=== PATIENT | male | born 1985 | race Caucasian/White ===

== ENCOUNTER → 2024-09-01 12:51 | Outpatient (BNVA) | payer OTHER, SELFPAY | PROVIDERS: Visit Provider Registered Nurse | DX: S92.354A Nondisplaced fracture of fifth metatarsal bone, right foot, initial encounter for closed fracture (principal); X50.1XXA Overexertion from prolonged static or awkward postures, initial encounter | CPT/HCPCS: 99203 ==

== ENCOUNTER 2024-09-22 09:21 | Outpatient (AMB) | payer OTHER, SELFPAY ==
--- NOTE | 2024-09-22 09:39 | A.OFFVIS_ITS ---
Vital Signs 09/22/24 09:45 Height 5 ft 7 in Weight 165 lb BMI 25.8 Handedness Right Intake Visit Reasons: FC-RT 5th metatarsal base Fx WC DOI-08/31/24 Intake Note: Jad is a 39 year old male who presents today with a post op shoe and crutches for a evaluations of his right ankle pain, DOI 08/31/24. Patient was seen at the [facility] work connection were he was placed in a boot, crutches and to be non weight bearing. Patient states he was walking and he rolled his ankle and his full weight was on it. He mentions that his pain is more on the lateral aspect of the foot and ankle. Patient states that he feels a dull/numbness in his small toe. Allergies No Known Allergies Allergy (Verified 09/22/24 09:44) HPI HPI FC-RT 5th metatarsal base Fx DOI-08/31/24: Details: Mr. 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 He felt and heard an audible crack and immediately had pain along the lateral aspect of the foot going up to the ankle. Date of injury was 08/31/2024. He presented to an ED where x-rays were obtained and he was found to have a fracture at the base of the 5th metatarsal. He was given a postop walking shoe and crutches. He was seen at the work connection where referral was placed to our orthopedic office for further evaluation and treatment. Patient states that he has been extremely painful to put weight on. And continues to have pain along the lateral aspect of the foot in the lateral aspect of the ankle. 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 Tenderness to palpation over the peroneal tendons. Patient is able to demonstrate dorsiflexion, plantar flexion, pronation and supination with limitations due to pain. Sensation is intact. Pedal pulse intact. Office Procedures AMB Fracture Care Fracture Billing Code: Fracture Billing Code Assessment & Plan Assessment & Plan (1) Fracture of base of fifth metatarsal bone of right foot: Code(s): S92.351A - Displaced fracture of fifth metatarsal bone, right foot, initial encounter for closed fracture Category: Medical Plan Mr. 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 He felt and heard an audible crack and immediately had pain along the lateral aspect of the foot going up to the ankle. Date of injury was 08/31/2024. He presented to an ED where x-rays were obtained and he was found to have a fracture at the base of the 5th metatarsal. He was given a postop walking shoe and crutches. He was seen at the work connection where referral was placed to our orthopedic office for further evaluation and treatment. Patient states that he has been extremely painful to put weight on. And continues to have pain along the lateral aspect of the foot in the lateral aspect of the ankle. While in the office today, I have switch the patient out of the postop shoe and placed him into a short walking boot. He may begin to weightbear as tolerated. Additionally, I have placed an order for physical therapy to work on range of motion and modalities. I would like to see him back in 4 weeks with repeat x- rays, sooner if needed. X-rays of the right foot which were obtained while in the office today and were reviewed by me, Angie Sagastume PA-C, revealed fracture of the base of the 5th metatarsal. Orders: Orders XR foot RT min 3V Today M79.673 - Pain in unspecified foot PT Evaluation and Treatment Today S92.351A - Displaced fracture of fifth metatarsal bone, right foot, initial encounter for closed fracture Coding Level of Care Code New Pt Level 4 (42688) Diagnoses Fracture of base of fifth metatarsal bone of right foot S92.351A CPT Codes Fracture Care - Fracture Billing Code: Fracture Billing Code ([id number])
[2024-09-22 09:45] VITALS: BMI 25.8
--- OUTSIDE RECORDS SUMMARY | 2024-09-22 09:50 | XMS_ITS | Encounter Summary ---
Author Organization [facility] Address [address] [place] [address] Care Team Providers Care Embossing Press Operator Name Role Phone Andrews Miller MD Primary Care Provider [phone] Encounter Details Date Type Department Care Team (Late st Contact Info) Description 02/09/2020 Scanned Document [facility] [address] [place] [place] [address] Provider, MD Myrna [address] [place] [address] Social History Tobacco Use Types Packs/Day Years [...] on file documented as of this encounter Visit Diagnoses Not on filedocumented in this encounter Care Teams Embossing Press Operator Relationship Specialty Start Date End Date Andrews Miller MD [address] [place] [id number] PCP - General Internal Medicine 05/11/19 documented as of this encounter
--- OUTSIDE RECORDS SUMMARY | 2024-09-22 09:50 | XMS_ITS | Clinical Summary ---
Author Organization [facility] Address [address] [place] [address] Phone Care Team Providers Care Engineer Systems Name Role Phone Andrews Miller MD Primary Care Provider [phone] Allergies No known active allergies Medications albuterol HFA (PROAIR HFA ; PROVENTIL HFA ; VENTOLIN HFA) 90 mcg/actuation inhaler Inhale 2 puffs by mouth every 6 hours as needed. Active ipratropium-alb uteroL (DUONEB) 0.5-2.5 mg/3 mL nebulizer solution Take 3 mL by nebulization every 6 (six) hours. 360 mL 4 Active Active Problems No known active problems Medical History Medical History Date Comments Asthma DX:Asthma;COMMEN T:exercise induced Low back pain DX:Low back pain Kidney stone DX:Kidney stone Family History Medical History Relation Name Comments No Known Problems Father No Known Problems Mother Cancer Paternal Grandfather Colon c ancer. Clotting disorder Neg Hx Relation Name Status Comments Father Mother Alive Paternal Grandfather Social History Tobacco Use Types Packs/Day Years Used Date Smoking Tobacco: Never Smokeless Tobacco: Never Alcohol Use Standard Drinks/Week Comments No 0 (1 standard drink = 0.6 oz pur e alcohol) Sex and Gender Information Value Date Recorded Sex Assigned at Male 01/14/2024 3:08 PM EST Legal Sex Male 4:48 AM EST Gender Identity Male 01/14/2024 3:08 PM EST Sexual Orientation Straight 01/14/2024 3: 08 PM EST Obstetrics History Last Filed Vital Signs Vital Sign Reading Time Taken Comments Blood Pressure 128/80 01/14/2024 2:51 PM EST Pulse 85 01/14/2024 2:51 PM EST Temperature 36.7 C (98.1 F) 01/14/2024 2:51 PM EST Respiratory Rate 20 01/14/2024 2:51 PM EST Oxygen Saturation 96% 01/14/2024 5:09 PM EST Inhaled Oxygen Concentration - - Weight 77.1 kg (170 lb) 01/14/2024 2:51 PM EST Height 170.2 cm (5' 7 ) 01/14/2024 2:51 PM EST Body Mass Index 26.63 01/14/2024 2:51 PM EST Plan of Treatment Health Maintenance Due Date Last Done Comments DTaP,Tdap,and Td Vaccines (1 - Tdap) 2005 Hepatitis B Vaccines (1 of 3 - 19+ 3-dose series) 2005 Pneumococcal Vaccine: Pediat rics (0 to 5 Years) and At-Risk Patients (6 to 49 Years) (1 of 2 - PCV) 2005 Cholesterol Screening (Lipid Panel) 02/11/2022 Depression Screening 02/11/2022 HIV Screening 02/11/2022 Hepatitis C Screening 02/11/2022 Social Influencers of Health Screening 02/11/2022 COVID-19 Vaccine (2023-2 5 season) 2023 Influenza Vaccine (#1) 2024 HIB Vaccines Aged Out No longer eligi ble based on patient's age to complete this topic HPV Vaccines Aged Out No longer eligi ble based on patient's age to complete this topic Hepatitis A Vaccines Aged Out No long er eligible based on patient's age to complete this topic IPV Vaccines Aged Out No longer eligi ble based on patient's age to complete this topic MMR Vaccines Aged Out No longer eligi ble based on patient's age to complete this topic Meningococcal ACWY Vaccine Aged Out N o longer eligible based on patient's age to complete this topic Meningococcal B Vaccine Aged Out No l onger eligible based on patient's age to complete this topic RSV Immunization Patients Un melyssa 20 months Aged Out No longer eligible b ased on patient's age to complete this topic Varicella Vaccines Aged Out No longer eligible based on patient's age to complete this topic Care Teams Engineer Systems Relationship Specialty Start Date End Date Andrews Miller MD PCP - General Hospitalist Medicine 04/23/19
--- OUTSIDE RECORDS SUMMARY | 2024-09-22 09:50 | XMS_ITS | Clinical Summary ---
Author Organization [facility] Address [address] [place] [address] Care Team Providers Care House Mother Name Role Phone Andrews Miller MD Primary Care Provider [phone] Allergies No known active allergies Medications Medication Sig Dispensed Refills Start Date End Date Status albuterol 108 (90 Base) MCG/ACT inhaler Inhale 2 puffs into the lungs every 6 (six) hours as needed for wheezing. 0 Active Active Problems Problem Noted Date Diagnosed Date UTI (urinary tract infection) 11/02/2021 Febrile illness, acute 11/02/2021 Cellulitis of right lower extremity 09/12/2017 Leukocytosis 09/12/2017 Hypokalemia 09/12/2017 Family History Medical History Relation Name Comments No Sig Med Hx Father No Sig Med Hx Mother Cancer Paternal Grandfather Colon c ancer. Clotting disorder Neg Hx Relation Name Status Comments Father Mother Alive Paternal Grandfather Social History Tobacco Use Types Packs/Day Years Used Date Smoking Tobacco: Never Smokeless Tobacco: Never Alcohol Use Standard Drinks/Week Comments No 0 (1 standard drink = 0.6 oz pure alcohol) social, 3-4 shots and a beer every weekend Sex and Gender Information Value Date Recorded Sex Assigned at Male 02/16/2019 12:47 PM EST Gender Identity Male 02/16/2019 12:47 PM EST Sexual Orientation Not on file Job Start Date Occupation Industry Not on file Not on file Not on file Last Filed Vital Signs Vital Sign Reading Time Taken Comments Blood Pressure 105/63 11/03/2021 7:22 AM EDT Pulse 71 11/03/2021 7:22 AM EDT Temperature 36.2 C (97.1 F) 11/03/2021 7:22 AM EDT Respiratory Rate 16 11/03/2021 7:22 AM EDT Oxygen Saturation 97% 11/03/2021 7:22 AM EDT Inhaled Oxygen Concentration - - Weight 68 kg (150 lb) 05/14/2022 9:45 AM EST Height 169 cm (5' 6.54 ) 05/14/2022 9:45 AM EST Body Mass Index 23.82 05/14/2022 9:45 AM EST Plan of Treatment Health Maintenance Due Date Last Done Comments Hepatitis B Vaccines (1 of 3 - 3-dose series) 1986 Hepatitis C Screening 1986 COVID-19 Vaccine (#1) 03/06/1987 Depression Screening 1998 BMI Counseling 2004 Preventative Health Evaluation 2004 DTap / Tdap / Td (1 - Tdap) 2005 Influenza Vaccine (#1) 2024 Pneumococcal Vaccine Aged Out No long er eligible based on patient's age to complete this topic RSV Ped < 20 months Aged Out No longe r eligible based on patient's age to complete this topic Advance Directives For more information, please contact: [phone] Latest Code Status on File Code Status Date Activated Date Inactivated Comments Full Code 11/03/2021 12:11 AM 11/03/2021 7:07 PM This code status was ascertained in the following way: discussion with patient . Code Status History Code Status Date Activated Date Inactivated Comments Full Code 09/12/2017 1:17 PM 09/15/2017 12:17 AM This c ode status was ascertained in the following way: discussion with patient . Care Teams House Mother Relationship Specialty Start Date End Date Andrews Miller MD [address] [facility] [place] [address] PCP - General Hospitalist Medicine 04/23/19
--- OUTSIDE RECORDS SUMMARY | 2024-09-22 09:50 | XMS_ITS | Data Portability ---
Author Organization [place] [facility] [place] [place] Address [address] [place] [address] Care Team Providers Care Hatch Tender Name Role Phone SAVANNAH RAYMOND Primary Care Provider CARINE WYLIE Supervisor [employer] [phone] Assessment Encounter Date Assessment Date Assessment LastModified by Organization Details LastModified Time 11/29/2023 11/29/2023 [facility] PROGRESS NOTE Previous Visit (if applicable) 11/01/2023:LES The above findings were discussed in detail today with the patient. He is 11 days postop status post left ulnar nerve decompression with anterior transposition, doing well. I discussed with him the need for weaning out of the sling and working on range of motion of the elbow. He can start gentle scar massage over the incision. I would refrain from using any lotions or soaking for another week. He will go to physical therapy to work on range of motion and gradual strengthening and endurance, I will provide a PT prescription that states this. Weight restrictions are no lifting anything over 10 pounds for the next week and then can progress to less than 30 pounds for the next 3 weeks. He will progress to increase lifting at 6 weeks. At that point I would allow him to go back to work full duty depending on how his PT is going. I will provide a note that states he will be out of work at this point. He will return for follow-up in 4 weeks for repeat evaluation. All of his questions were answered, he is in agreement the plan. IMPRESSION/PLAN : Jad is doing fairly well today without any current significant complaints. He is doing much better than he was at his previous visit and has regained his range of motion however has not started strengthening yet. He will start strengthening with physical therapy and return in 3 weeks for repeat evaluation. We will anticipate discussing return to work at that time. Of note, patient did have evidence of a previous suture abscess at the proximal wound however it does appear that it already decompressed and he does not have any signs of infection. He will monitor this closely. We will hold off on any further antibiotics for now We reviewed my findings at length with the patient today. We discussed the nature and etiology of this problem along with current treatment options. We discussed the expected course and outcomes and what to expect. We also discussed risks and benefits. All of their questions were answered today, and there was exhibited understanding and comprehension of all that was discussed. CC :4 week f/u L elbow Interim History : The patient presents to [facility] today for repeat evaluation of his left elbow now 6 weeks out from surgery. He is doing fairly well and feels that his symptoms are improving. He still has some radiating discomfort and numbness associated. Of note, patient did have evidence of a previous suture abscess at the proximal wound however it does appear that it already decompressed and he does not have any signs of infection. He is still working with physical therapy and has not started strengthening yet. 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 REVIEW OF SYSTEMS : Refer to HPI. Patient currently denies any chest pain, shortness of breath, headache, abdominal pain, numbness, tingling, or other musculoskeletal injuries. Also denies any recent infections including viral illnesses, weight loss, night sweats, fevers, chills, rigors, and body aches. Focused Physical Examination: Alignment of the all major joints of the Left Elbow are satisfactory. Incision overall healing well. Evidence of previous likely suture abscess in the proximal wound that appears to be decompressed. No surrounding signs of infection. No active drainage or purulent collection. No obvious suture present. No significant signs of obvious deformity or pathology. Skin is intact. No signs of cutaneous injury. No signs of infection including erythema, induration, abscess formation or purulent drainage. Tenderness: Continued tenderness at the surgical site. Otherwise, no other significant focal tenderness throughout the remainder of the hand, elbow and forearm. Range of motion of the elbow 0 to 120 degrees. Near full supination and pronation as well. 4+ out of 5 intrinsic strength left hand. Overall neurovascularly intact with full sensations in the radial, ulnar and median distributions. No subjective numbness or tingling. Intact EPL/FPL/instrinsic s with good strength. Palpable radial pulse and brisk cap refill throughout. IMAGING/DIAGNOSTIC TESTING: See Discussion Notes Section Below WORKING DIAGNOSIS : Status post left ulnar nerve decompression Procedure : See Procedure Notes Section Below Patient was seen and evaluated by Tavon Aaron PA-C in indirect conjuction with Documenting Provider: Lotus Blackwood MD . He/She agrees with history, physical examination, tests/diagnostic imaging, and treatment plan. Tavon Aaron PA-C [facility] [email or web address] Not available 11/29/2023 10:45:31 12/20/2023 12/20/2023 The above findin gs were discussed in detail today with the patient. He is about 8-1/2 weeks status post left ulnar nerve decompression with anterior transposition, doing well. He will continue to work with physical therapy on range of motion and strengthening, they can increase his weightbearing and lifting as tolerated. He will continue with home exercise this. Did let him know it may take months for the tingling to resolve, he understands this and we will continue to monitor. I will send him back to work to light duty work, not lift anything heavier than 10 pounds, no pushing or pulling. A note was provided today. He will return to see me for follow-up in 4 weeks for repeat evaluation. All of his questions were answered, he is in agreement with the plan. [email or web address] Not available 12/23/2023 13:45:31 01/17/2024 01/17/2024 The above findin gs were discussed in detail to the patient. He is 3 months from left ulnar nerve decompression with anterior transposition, doing well. I did remind him that numbness and tingling may take up to a year to improve after the surgery if it does improve at all. I would expect his strength to continue to improve however he has not been doing any therapy, formally or at home to improve his strength. I did let him know that it is important that he continue with home exercises even though he is not going to physical therapy to improve strengthening. He should start doing this at home with light weights and will continue to increase weightbearing and strengthening as tolerated. 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 I did let him know that eventually we will send him back to full duty, he is healed enough to withstand this however he would like to do some strengthening at home in order to feel ready to do this. I reassured him that the clicking he is feeling is not the ulnar nerve subluxating back into the cubital tunnel, it still sits anterior to the epicondyle where it was placed during surgery. She is continue with scar massage over the incision to help with swelling. I will see him back for follow-up in 4 weeks for reevaluation. All of his questions were answered, he is in agreement plan. [email or web address] Not available 01/17/2024 11:44:10 02/26/2024 02/26/2024 The above findin gs were discussed in detail today with the patient. He is 4 months status post left ulnar nerve decompression with anterior transposition. He continues to have pain localized at the medial epicondyle, along the ulnar nerve, and numbness and tingling in the small finger. I did let him know that the numbness and tingling in the hand and small finger can take up to a year or longer to improve. He may not see improvement in his strength in the hand for more than a year. The plan of the surgery is to stop progression of the symptoms. This was again explained to him as I explained to him many times before. The nerve again has not been subluxating, it still rests anterior to the epicondyle. I do not think that he has another point of compression given his examination. He needs to continue with strengthening and endurance at home, he can lift weights or go back to work to continue to build up his strength and endurance. Again this can take 6 months or a year to improve after surgery like this. I welcomed him to get a second opinion if he is concerned about this. I will progress his light duty to lifting less than 30 pounds at this point. We did discuss that he needs to eventually go back to work full duty. I will provide a note that states this. I will see him back for follow-up in 4 weeks for repeat evaluation. All of his questions were answered, he is in agreement. [email or web address] Not available 02/26/2024 10:43:41 04/03/2024 04/03/2024 He is 5 months status post left ulnar nerve decompression with anterior transposition from a work-related injury. He continues to make improvement on strengthening. We again discussed the expected postoperative recovery, I did let him know that numbness and tingling in the ring and small finger may take up to a year to resolve if it ever does completely get better and strengthening may take this amount of time to improve as well. In terms of his surgical site, he is well-healed without any concerns on my end in terms of the position of the nerve. Again he has no restrictions, he should continue to work on strengthening and endurance. I will send him back to work limited duty and increase restrictions to lifting less than 50 pounds. At his next visit when he is 6 months postop, I will release all restrictions and he will go back to work full duty. We had a explicit conversation about this and he understands that in 4 weeks when he is 6 months postop he will be released to work full duty. If he does not find that he can perform these because he does not have the strength, he may have to find a different job and he is already starting to look into that at this point. All of his questions were answered, he is in agreement the plan. [email or web address] Not available 04/03/2024 12:43:49 Plan of Treatment Reminders Order Date Submit Date Provider Last Modified By Organization Details Last Modified Time Details Appointments None record ed. Lab None record ed. Referral None record ed. Procedures None record ed. Surgeries None record ed. Imaging None record ed. Medication Orders None record ed. Patient TargetsNo targets recorded. Patient InstructionsNo instructions recorded. Reason for Referral None Reported. Problems Name Problem SNOMED Code Status Onset Date Resolution Date Notes Provider Name and Address Organization Details Recorded Time Neck pain 57522838 Active 2022 DIMITRIOS MCDERMOTT PA-C [address], [place], [address] , [place] [facility] 3 17:21:15 Accident while engaged in work-relat ed activity Active 2022 Not Available [facility] 4 08:26:36 Ulnar neuropathy of left arm 6836435380237 07 Active 2022 Richard Perez MD [address], [place], [address] , [place] - [facility] 3 14:14:59 Notes:Some problems listed i n Document: #[id number] could not be added to this patient's chart. Please review this document and add these problems to the patient's chart manually as needed. Problem Notes None recorded. Procedures Surgical History Date Name Laterality Status Provider Name and Address Organization Details Recorded Time 10/21/2023 NEUROPLAST Y, ULNAR NERVE AT ELBOW (SURG) completed Brandi Stokes [place] [facility] 10/22/2023 09:10:17 Imaging Results None recorded. Procedure Notes None recorded. Medical Equipment None Reported. Allergies No known drug allergies Medications Name Sig Start Date Stop Date Status Note LastModified by Organization Details LastModified Time naproxen 375 mg tablet TAKE 1 TABLET BY MOUTH TWICE DAILY IF NEEDED FOR PAIN active Not Available Not Available No t Available prednisone 20 mg tablet TAKE 2 TABLETS (40 MG TOTAL) BY MOUTH DAILY. active Not Available Not Available No t Available methocarbam ol 750 mg tablet TAKE 1 TABLET BY MOUTH EVERY DAY 04/10 completed Not Available Not Available Not Available cephalexin 500 mg capsule TAKE 1 CAPSULE BY MOUTH FOUR TIMES A DAY FOR 10 DAYS 01/30 completed Not Available Not Available Not Available bromphenira mine-pseudo ephedrine-D M 2 mg-30 mg-10 mg/5 mL oral syrup TAKE 10 ML BY MOUTH 4 (FOUR) TIMES A DAY NEEDED FOR CONGESTIO N OR COUGH. active Not Available Not Available No t Available oxycodone 5 mg tablet TAKE 1 TABLET EVERY 4 TO 6 HOURS BY MOUTH 12/19 completed Not Available Not Available Not Available Vitals Date Recorded Body height Body mass index (BMI) Body weight Provider Name and Address Organization Details Last Updated DateTime 04/03/2024 167.64 cm 27.4 kg/m2 09814.7 g Mallika Shepardgermainanastacio [facility] 04/03/2024 09:58:12 Date Recorded Body height Provider Name an d Address Organization Details Last Updated DateTime 11/29/2023 167.64 cm [facility]ose [facility] 11/29/2023 10:32:28 Date Recorded Body height Provider Name an d Address Organization Details Last Updated DateTime 12/20/2023 167.64 cm Jarret López [facility] 12/20/2023 10:33:15 Social History None recorded. Functional Status None recorded. Mental Status None recorded. Family History Nothing Reported. Medical History Condition Response Coronary Artery Disease N Gout N Hyperthyroidism N MRSA N Blood Transfusion N Emphysema N Depression N COPD N Hypothyroidism N Pacemaker N Vascular Disease N Gastrointestinal Disease N Anxiety Disorder N Autoimmune disease N Arthritis N Cancer N Stroke N High Cholesterol N Neurologic Disorder N Liver Disease N Organ Transplant N Rheumatoid Arthritis N Arrhythmia N Fibromyalgia N Kidney Disease N Allergies/Hayfever N Adverse Reaction to Anesthesia N Thyroid Problems N Anemia N Brain Injury N Heart Attack ([place]) N Osteopenia N Diabetes N Bleeding Disorder N Seizures/Epilepsy N AIDS/HIV N Congestive Heart Failure (CHF) N Asthma Y Amputation N Reflux/GERD N Sleep Apnea N Hepatitis N Aneurysm N Heart Disease N Pulmonary Embolism N Hypertension N Osteoporosis N Past Encounters Encounter ID Performer Location Encounter Start Date Encounter Closed Date Diagnosis/Indication Diagnosis SNOMED-CT Code Diagnosis ICD10 Code Diagnosis Note [id number] MD ANH Betts [place] [id number] 06/18/2022 14:09:03 06/18/2022 14:29:25 Accident while engaged in work-related activity 01660523 Y99.0 Neck pain 57211511 M54.2 [id number] [place] [address] 9 07/16/2022 14:22:27 07/16/2022 15:09:34 Accident while engaged in work-related activity 48233212 Y99.0 Neck pain 18649989 M54.2 [id number] MD ANH Betts [place] [id number] 08/13/2022 13:56:49 08/13/2022 14:17:05 Ulnar neuropathy of left arm 7463808213 25849 G56.22 Neck pain 25596840 M54.2 [id number] MD ANH Falcon [place] [id number] 09/19/2022 13:58:44 09/19/2022 14:37:51 Pain of left elbow joint 2530867898 3055308 M25.522 Ulnar neur opathy of left arm 2411684784 07301 G56.22 Elbow [id number] MD ANH Falcon [place] [id number] 10/24/2022 13:02:02 10/24/2022 13:19:13 Ulnar neuropathy of left arm 7157422656 36470 G56.22 Elbow [id number] MD ANH Falcon [place] [id number] 11/21/2022 10:13:57 11/21/2022 10:46:45 Ulnar neuropathy of left arm 8696062509 79780 G56.22 Elbow [id number] MD ANH Falcon [place] [address] 01/30/2023 09:34:07 01/30/2023 10:25:55 Ulnar neuropathy of left arm 3285145904 72895 G56.22 Elbow [id number] MD NAH Falcon [place] [address] 9 03/06/2023 09:01:30 03/06/2023 09:19:24 Ulnar neuropathy of left arm 0194167581 79925 G56.22 Elbow [id number] MD ANH Falcon [place] [address] 9 04/10/2023 09:31:49 04/10/2023 09:51:36 Ulnar neuropathy of left arm 5563761975 78823 G56.22 Elbow [id number] MD ANH Falcon [place] [address] 9 06/26/2023 10:57:33 06/26/2023 11:44:30 Ulnar neuropathy of left arm 4504063637 86260 G56.22 Elbow [id number] MD ANH Falcon [place] [address] 9 07/03/2023 10:11:57 07/03/2023 10:25:40 Ulnar neuropathy of left arm 6944655824 80143 G56.22 Elbow [id number] MD ANH Falcon [place] [id number] 07/31/2023 14:57:20 07/31/2023 15:13:48 Ulnar neuropathy of left arm 8281172161 70039 G56.22 Elbow [id number] MD ANH Falcon [place] [id number] 08/28/2023 15:34:59 08/28/2023 15:55:28 Ulnar neuropathy of left arm 4682425894 56869 G56.22 Elbow [id number] Lotus Schindelar , MD [address] [address] 09/30/2023 09:16:01 09/30/2023 10:34:12 Ulnar neuropathy of left arm 8839150725 71672 G56.22 [id number] MD WALE [address] [address] 11/01/2023 13:19:54 11/01/2023 13:45:12 Ulnar neuropathy of left arm 2863000691 41847 G56.[id number] [address] 11/29/2023 10:23:31 11/29/2023 10:51:04 Ulnar neuropathy of left arm 5700889230 32709 G56.22 [id number] MD WALE [address] [address] 12/20/2023 10:27:29 12/20/2023 10:58:29 Ulnar neuropathy of left arm 0939785596 98351 G56.22 [id number] Lotus Blackwood MD [address] [address] 01/17/2024 10:06:53 01/17/2024 10:40:07 Ulnar neuropathy of left arm 9406064884 65527 G56.22 [id number] Lotus Blackwood MD [address] [address] 02/26/2024 10:06:19 02/26/2024 10:40:31 Ulnar neuropathy of left arm 3105998717 62562 G56.22 [id number] Lotus Blackwood MD [address] [address] 04/03/2024 09:57:22 04/03/2024 10:28:33 Ulnar neuropathy of left arm 3890752560 63986 G56.22 Health Concerns Section Related Observation LastModified by Organization Detai ls LastModified Time None Recorded Concern Status LastModified by Organization Details LastModified Time None Recorded Advance Directives Directive None Recorded Payers Insurance Date Sequence Insurance Name Policy Number Policy Robin Covered Member ID Robin Member ID Guarantor Name 09/13/2023 [facility] Alexx Aranda Jad Notes Date Note Type Note Provider Name and Address Organization Details Recorded Time 12/20/2023 text/html He presents for postop follow-up status post left ulnar nerve decompression with anterior subcutaneous transposition, date of surgery [address] 24, he is 8 and half weeks postop. He has been in physical therapy, working on range of motion and gentle strengthening. He notes improvement in his symptoms, he does feel like the numbness and tingling in the ring and small finger are improving. He notes increased strength in his hand. He has been working up to 5 pound weights with physical therapy and doing home exercise program. He is happy with his progress. This is a work-related injury and he has been out of work. Lotus Blackwood MD [address], [place], [address], [facility] - [facility] 12/23/2023 13:45:49 01/17/2024 text/html He follows up fo r postop follow-up visit status post left ulnar nerve decompression with anterior transposition, date of surgery 10/21/2023, if he is 3 months postop. This is a work-related injury. He went back to work light duty on her last visit, not lifting up any heavier than 10 pounds. 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 He stopped physical therapy in November as work comp stopped authorizing it. Since then does not sound like he has been doing any exercises at home or working on strengthening and endurance. He does say he is doing scar massage. He notes improvement in pain and range of motion though still does have pain localized at his incision and over the ulnar nerve. He notes a clicking sensation with full extension of the elbow. He still notes numbness and tingling into the ring and small finger and weakness in the hand. Lotus Blackwood MD [address], [place], [address], [facility] - [facility] 01/17/2024 11:44:53 02/26/2024 text/html He follows up fo r postop follow-up visit status post left ulnar nerve decompression with anterior transposition, date of surgery 10/21/2023, if he is 4 months postop. This is a work-related injury. He is working light duty, not lifting up any heavier than 20 pounds. He has been discharged from physical therapy, his last session was yesterday. They felt that he plateaued in terms of making progress. He was working on strengthening and endurance. He notes continued pain at the incision site and at his posterior triceps. He notes a subjective clicking at the elbow with full extension. He still has pain weakness and numbness and tingling in the ulnar hand and into the small finger. He notes that it is slowly improving. He does not feel he can go back to full duty at this time. Lotus Blackwood MD [address], [place], [address], [facility] - [facility] 02/26/2024 10:43:51 04/03/2024 text/html He follows up fo r postop follow-up visit status post left ulnar nerve decompression with anterior transposition, date of surgery 10/21/2023, he is 5 months postop. I released him to working and lifting less than 30 pounds last visit. He has been tolerating this well. He is going to the gym and lifting 30 pounds. He notes improvement in the numbness at the medial incision he continues to have numbness into his ring and small finger and pain in the same distribution. He describes pain with full elbow extension especially when he is working overhead. He tells me he is not sure he is going to be able to go back to full duty at work due to the nature of his work. Lotus Blackwood MD [address], [place], [address], [place] [facility] 04/03/2024 12:44:00
== END 2024-09-22 10:23 | disposition home or self-care (01) ==
LOC: HO.HOS 09:22
PROVIDERS: Visit Provider Physician Assistant
DX: S92.351A Displaced fracture of fifth metatarsal bone, right foot, initial encounter for closed fracture (principal)
CPT/HCPCS: 99203

== ENCOUNTER → 2024-09-22 09:24 | Outpatient (BNV) | payer OTHER, SELFPAY | PROVIDERS: Visit Provider Radiology Diagnostic Radiology | DX: S92.351A Displaced fracture of fifth metatarsal bone, right foot, initial encounter for closed fracture (principal) | CPT/HCPCS: 73630 ==

== ENCOUNTER 2024-09-22 10:38 | Outpatient (REF) | payer OTHER, SELFPAY ==
--- NOTE | ~2024-09-22 | XR_ITS ---
EXAMINATION: XR FOOT 3 OR MORE VIEWS RIGHT HISTORY: M79.673 - Pain in unspecified foot COMPARISON: There are no prior studies available for comparison. FINDINGS: Three views of the right foot are submitted. Osseous mineralization is normal. There is a mildly displaced intra-articular fracture of the base of the 5th metatarsal. No additional fracture is seen. The joint spaces are preserved. There is mild soft tissue swelling at the fracture site. XR/XR foot RT min 3V IMPRESSION: Mildly displaced intra-articular fracture of the base of the 5th metatarsal. Electronically signed by: Bubba Cota MD 09/22/2024 09:35 AM EDT
--- OUTSIDE RECORDS SUMMARY | 2024-09-23 11:17 | XMS_ITS | Clinical Summary ---
Author Organization [facility] Address [address] [place] [address] Care Team Providers Care Camp Housekeeper Name Role Phone Andrews Miller MD Primary Care Provider [phone] Allergies No known active allergies Medications Medication [...] Advance Directives For more information, please contact: [phone] Latest Code Status on File Code Status [...] way: discussion with patient . Care Teams Camp Housekeeper Relationship Specialty Start Date End Date Andrews Miller MD [address] [facility] [address] PCP - General Hospitalist Medicine 04/23/19
--- OUTSIDE RECORDS SUMMARY | 2024-09-23 11:17 | XMS_ITS | Encounter Summary ---
Author Organization [facility] Address [address] [place] [address] Care Team Providers Care Field Service Poultry Technician Name Role Phone Andrews Miller MD Primary Care Provider Encounter Details Date Type Department Care Team (Late st Contact Info) Description 02/09/2020 Scanned Document [facility] [address] [place] [address] Provider, MD Myrna [address] [place] [address] Social History Tobacco Use Types Packs/Day Years [...] on filedocumented in this encounter Care Teams Field Service Poultry Technician Relationship Specialty Start Date End Date Andrews Miller MD [address] [place] [address] PCP - General Internal Medicine 05/11/19 documented as of this encounter
--- OUTSIDE RECORDS SUMMARY | 2024-09-23 11:17 | XMS_ITS | Clinical Summary ---
Author Organization [facility] Address [address] [place] [address] Phone Care Team Providers Care Machine Striper Name Role Phone Andrews Miller MD Primary Care Provider [phone] Allergies No known active allergies Medications albuterol [...] age to complete this topic Care Teams Machine Striper Relationship Specialty Start Date End Date Andrews Miller MD PCP - General Hospitalist Medicine 04/23/19
--- OUTSIDE RECORDS SUMMARY | 2024-09-23 11:17 | XMS_ITS | Data Portability ---
Author Organization [place] [facility] Mendo[facility] [place] Address [address] [place] [address] Care Team Providers Care Hardware Installation Coordinator Name Role Phone SAVANNAH RAYMOND Primary Care Provider [phone] CARINE WYLIE Research Engineer [phone] Assessment Encounter Date Assessment Date Assessment LastModified by Organization Details LastModified Time 11/29/2023 11/29/2023 [facility] PROGRESS NOTE Previous Visit (if applicable) 11/01/2023:LES [...] : The patient presents to [facility] today for repeat evaluation of his left [...] treatment plan. Tavon Aaron PA-C [facility] [email or web address] Not available 11/29/2023 10:45:31 12/20/2023 12/20/2023 The [...] Address Organization Details Recorded Time Neck pain 14589385 Active 2022 DIMITRIOS MCDERMOTT PA-C [address], [place], [address] , [place] - [facility] 3 17:21:15 Accident while engaged in work-relat ed activity Active [address] Not [address] [facility] 4 08:26:36 Ulnar neuropathy of left arm 1857284875555 07 Active 2022 Richard Perez MD [address], [place], [address] , [place] - [facility] 3 14:14:59 Notes:Some problems listed i n Document: #[id number] could not be added to this patient's chart. Please review this document and add these problems to the patient's chart manually as needed. Problem Notes None recorded. Procedures Surgical History Date Name Laterality Status Provider Name and Address Organization Details Recorded Time 10/21/2023 NEUROPLAST Y, ULNAR NERVE AT ELBOW (SURG) completed Brandi Stokes [place] - [facility] 10/22/2023 09:10:17 Imaging Results None recorded. [...] Updated DateTime 04/03/2024 167.64 cm 27.4 kg/m2 29001.7 g Mallika Shepardgermainanastacio [facility] 04/03/2024 09:58:12 Date Recorded Body height Provider Name an d Address Organization Details Last Updated DateTime 11/29/2023 167.64 cm Mariajose Cabrales [facility] 11/29/2023 10:32:28 Date Recorded Body height Provider Name an d Address Organization Details Last Updated DateTime 12/20/2023 167.64 cm Jarret López [facility] 12/20/2023 10:33:15 Social History None recorded. Functional Status None recorded. Mental Status None recorded. Family History Nothing Reported. Medical History Condition Response Coronary Artery Disease N Gout N Hyperthyroidism N MRSA N Blood Transfusion N Emphysema N Hypothyroidism N Depression N COPD N Pacemaker N Vascular Disease N Gastrointestinal Disease N Anxiety Disorder N Autoimmune disease N Arthritis N Cancer N Stroke N High Cholesterol N Neurologic Disorder N Liver Disease N Organ Transplant N Rheumatoid Arthritis N Arrhythmia N Fibromyalgia N Kidney Disease N Allergies/Hayfever N Adverse Reaction to Anesthesia N Thyroid Problems N Anemia N Brain Injury N Heart Attack ([place]) N Osteopenia N Diabetes N Bleeding Disorder [...] Code Diagnosis Note 4577 MD ANH Betts [place] [id number] 9 06/18/2022 14:09:03 06/18/2022 14:29:25 Accident while engaged in work-related activity 00721481 Y99.0 Neck pain 68390289 M54.2 [address] [place] [place] [address] 9 07/16/2022 14:22:27 07/16/2022 15:09:34 Accident while engaged in work-related activity 53420731 Y99.0 Neck pain 10006903 M54.2 59501 MD ANH Betts [place] [id number] 9 08/13/2022 13:56:49 08/13/2022 14:17:05 Ulnar neuropathy of left arm 5665622921 12170 G56.22 Neck pain 02104812 M54.2 35225 MD ANH Falcon [place] [id number] 9 09/19/2022 13:58:44 09/19/2022 14:37:51 Pain of left elbow joint 2543091965 8918454 M25.522 Ulnar neur opathy of left arm 6799379799 90858 G56.22 Elbow 64483 MD ANH Falcon [place] [address]672-[address] 9 10/24/2022 13:02:02 10/24/2022 13:19:13 Ulnar neuropathy of left arm 3444090192 59582 G56.22 Elbow 34274 MD ANH Falcon [place] [id number] 9 11/21/2022 10:13:57 11/21/2022 10:46:45 Ulnar neuropathy of left arm 4617096460 01866 G56.22 Elbow 30241 MD ANH Falcon [place] [address] 9 01/30/2023 09:34:07 01/30/2023 10:25:55 Ulnar neuropathy of left arm 1727530358 91330 G56.22 Elbow 62474 MD ANH Falcon [place] [address] 9 03/06/2023 09:01:30 03/06/2023 09:19:24 Ulnar neuropathy of left arm 1642700531 34579 G56.22 Elbow 62314 MD ANH Falcon [place] [address] 9 04/10/2023 09:31:49 04/10/2023 09:51:36 Ulnar neuropathy of left arm 3903883029 21410 G56.22 Elbow 25985 MD ANH Falcon [place] [address] 9 06/26/2023 10:57:33 06/26/2023 11:44:30 Ulnar neuropathy of left arm 2586822310 48365 G56.22 Elbow 78976 MD ANH Falcon [place] [address] 9 07/03/2023 10:11:57 07/03/2023 10:25:40 Ulnar neuropathy of left arm 5950516367 90115 G56.22 Elbow 21256 MD ANH Falcon [place] [phone] 9 07/31/2023 14:57:20 07/31/2023 15:13:48 Ulnar neuropathy of left arm 1749530123 03073 G56.22 Elbow 66305 MD ANH Falcon [place] [phone] 9 08/28/2023 15:34:59 08/28/2023 15:55:28 Ulnar neuropathy of left arm 6547209598 99245 G56.22 Elbow [address]2585 Lotus Schindelar , MD [address] [address] 09/30/2023 09:16:01 09/30/2023 10:34:12 Ulnar neuropathy of left arm 5569420249 52231 G56.22 28044 MD WALE [address] [address] 11/01/2023 13:19:54 11/01/2023 13:45:12 Ulnar neuropathy of left arm 0287591146 93062 G56.[address] [address] 11/29/2023 10:23:31 11/29/2023 10:51:04 Ulnar neuropathy of left arm 4398707505 12428 G56.22 13898 MD WALE [address] [address] 12/20/2023 10:27:29 12/20/2023 10:58:29 Ulnar neuropathy of left arm 6023747247 84221 G56.22 66757 Lotus Blackwood MD [address] [address] 01/17/2024 10:06:53 01/17/2024 10:40:07 Ulnar neuropathy of left arm 5590007024 08995 G56.22 68383 Lotus Blackwood MD [address] [address] 02/26/2024 10:06:19 02/26/2024 10:40:31 Ulnar neuropathy of left arm 2428457104 55912 G56.22 242177 Lotus Blackwood MD [address] [address] 04/03/2024 09:57:22 04/03/2024 10:28:33 Ulnar neuropathy of left arm 3086619489 48322 G56.22 Health Concerns Section Related Observation LastModified by Organization Detai ls LastModified Time None Recorded Concern Status LastModified by Organization Details LastModified Time None Recorded Advance Directives Directive None Recorded Payers Insurance Date Sequence Insurance Name Policy Number Policy Robin Covered Member ID Robin Member ID Guarantor Name 09/13/2023 [facility] Alexx Aranda Jad Notes Date Note [...] Lotus Blackwood MD [address], [place], [address], [facility] - [facility] 12/23/2023 13:45:49 01/17/2024 text/html He follows [...] Lotus Blackwood MD [address], [place], [address], [facility] - [facility] 01/17/2024 11:44:53 02/26/2024 text/html He follows [...] Lotus Blackwood MD [address], [place], [address], [facility] - [facility] 02/26/2024 10:43:51 04/03/2024 text/html He follows [...] Lotus Blackwood MD [address], [place], [address], [place] [facility] 04/03/2024 12:44:00
--- OUTSIDE RECORDS SUMMARY | 2024-09-23 11:18 | XMS_ITS ---
Author Name [facility] Organization Unknown History of Medication Use Medication Directions Dispensed Refills Start Date End Date Stat us brompheniramine-ps eudoephedrine-DM (BROMFED DM) 30-2-10 MG/5ML syrup Take 10 mL by mouth 4 (four) times a day as needed for congestion or cough. 04/22/2024 active predniSONE (DELTASONE) 20 MG tablet Take 2 tablets (40 mg total) by mouth daily. 04/22/2024 active ipratropium-albute roL (DUONEB) 0.5-2.5 mg/3 mL nebulizer solution Take 3 mL by nebulization every 6 (six) hours. 01/14/2024 02/14/2024 active sulfamethoxazole-t rimethoprim (BACTRIM DS,SEPTRA DS) 800-160 MG per tablet Take 1 tablet by mouth 2 (two) times a day. 04/23/2019 active ibuprofen (MOTRIN) 800 mg tablet Take 800 mg by mouth 3 (three) times a day. 02/14/2019 active albuterol (PROVENTIL HFA; VENTOLIN HFA) 108 (90 Base) MCG/ACT inhaler Inhale 2 puffs 4 times daily (every 6 hours) as needed. 02/23/2013 active naproxen 375 mg tablet TAKE 1 TABLET BY MOUTH TWICE DAILY IF NEEDED FOR PAIN active Problems Problem Status Onset Date Problem Type Date of Resolution Source Thoracic sprain active 2019-05-19 ProblemAct [facility] Myalgia active 2019-05-19 ProblemAct [facility] Chronic midline thoracic back pain active 2020-02-16 ProblemAct [facility] Mild persistent asthmatic bronchitis with acute exacerbation active EncounterDiagnosisAct [facility] Degeneration of thoracic disc without myelopathy active 2019-05-19 ProblemAct [facility] Viral URI with cough active EncounterDiagnosisAct [facility] Accident while engaged in work-related activity active 2022-07-17 ProblemAct [facility] Ulnar neuropathy of left arm active 2022-08-13 ProblemAct [facility] Neck pain active 2022-07-[address] [facility] [address] Moderate asthma with exacerbation, unspecified whether persistent active EncounterDiagnosisAct [facility] Pneumonia of left lower lobe due to infectious organism active EncounterDiagnosisAct [facility] Encounters Encounter Type Encounter Reason Primary Diagnosis Location Date Ambulatory [facility] 08/25/2024 Ambulatory [facility] 07/21/2024 Ambulatory [facility] 06/16/2024 Ambulatory [facility] 04/22/2024 Ambulatory Sinus Problem Sinus Problem [facility] 04/22/2024 Emergency Flu-like symptoms diff breathing chest pain Pneumonia, unspecified organism [facility] 01/14/2024 Ambulatory [facility] 11/28/2023 Ambulatory [facility] 11/07/2023 Ambulatory ROUTINE Lesion of ulnar nerve, left upper limb [facility] 10/21/2023 Ambulatory [facility] 10/03/2023 Ambulatory [facility] 09/30/2023 Ambulatory [facility] 08/27/2023 Ambulatory [facility] 06/26/2023 Ambulatory [facility] 05/29/2023 Ambulatory [facility] 04/01/2023 Ambulatory [facility] 01/16/2023 Ambulatory [facility] 11/14/2022 Ambulatory [facility] 10/08/2022 Ambulatory [facility] 09/19/2022 Ambulatory [facility] 08/28/2022 Ambulatory [facility] 08/15/2022 Ambulatory [facility] 07/17/2022 Ambulatory [facility] 06/18/2022 Ambulatory PAIN PAIN [facility] 04/19/2022 Care Team Organization Name Specialty Phone Email Start Date End Nadir Zuniga HI [employer] [facility] 07/08/2024 [facility] 01/16/2024 [facility] Primary Care 01/14/2024 [facility] 2023 [facility] 2023 [facility] Primary Care 05/29/2023 [facility] Primary Care 04/26/2023 [facility] provided No Primary Care 04/19/2022 10/28/2023 [facility] No provided Primary Care 04/19/2022 04/19/2022 [facility] Primary Care 03/06/2022 03/06/2022 [facility] Primary Care 02/26/2022 10/28/2023 [facility] Unattributed Primary Care 01/19/2022 024
== END 2024-09-22 10:39 | disposition home or self-care (01) ==
LOC: HO.HOSX 10:38
PROVIDERS: Visit Provider Physician Assistant
DX: M79.671 Pain in right foot (principal); S92.351A Displaced fracture of fifth metatarsal bone, right foot, initial encounter for closed fracture; X50.9XXA Other and unspecified overexertion or strenuous movements or postures, initial encounter; Y93.01 Activity, walking, marching and hiking
CPT/HCPCS: 73630; 99202

== ENCOUNTER 2024-10-23 10:40 | Outpatient (REF) | payer OTHER, SELFPAY ==
--- NOTE | ~2024-10-23 | XR_ITS ---
CLINICAL HISTORY: M79.673 - Pain in unspecified foot 3 view right foot Comparison: DX/SR - XR FOOT 3 OR MORE VIEWS RIGHT - 09/22/24 09:24 EDT Findings: Slight Blurring of the fracture margins of the base of the 5th metatarsal fracture without bridging callus formation. The fracture line remains evident. Findings are consistent with early evidence of healing. There is adjacent soft tissue swelling which persists. No significant arthritic change or erosions. No ankle effusion. No radiopaque foreign body. IMPRESSION: Early evidence of healing of the 5th metatarsal base fracture. This document has been electronically signed by: Hansel Rosario DO on 10/23/2024 13:48:11
--- OUTSIDE RECORDS SUMMARY | 2024-10-24 10:42 | XMS_ITS | Clinical Summary ---
Author Organization [facility] Address [address] [place] [address] Phone Care Team Providers Care Principal Clerk Typist Name Role Phone Andrews Miller MD Primary Care Provider [phone] Allergies No known active allergies Medications albuterol [...] age to complete this topic Care Teams Principal Clerk Typist Relationship Specialty Start Date End Date Andrews Miller MD PCP - General Hospitalist Medicine 04/23/19
--- OUTSIDE RECORDS SUMMARY | 2024-10-24 10:42 | XMS_ITS | Encounter Summary ---
Author Organization [facility] Address [address] [place] [address] Care Team Providers Care Platinumsmith Name Role Phone Andrews Miller MD Primary Care Provider [phone] Encounter Details Date Type Department Care Team (Late st Contact Info) Description 02/09/2020 Scanned Document [facility] [address] [place] [address] Provider, MD Myrna [address] [place] [address] Social History Tobacco Use Types Packs/Day Years [...] on filedocumented in this encounter Care Teams Platinumsmith Relationship Specialty Start Date End Date Andrews Miller MD [address] [place] [address] PCP - General Internal Medicine 05/11/19 documented as of this encounter
--- OUTSIDE RECORDS SUMMARY | 2024-10-24 10:42 | XMS_ITS | Clinical Summary ---
Author Organization [facility] Address [address] [place] [address] Care Team Providers Care Balance Wheel Arm Burnisher Name Role Phone Andrews Miller MD Primary Care Provider [phone] Allergies No known active allergies Medications Medication [...] Advance Directives For more information, please contact: [phone] Latest Code Status on File Code Status [...] way: discussion with patient . Care Teams Balance Wheel Arm Burnisher Relationship Specialty Start Date End Date Andrews Miller MD [address] [facility] [place] [address] PCP - General Hospitalist Medicine 04/23/19
== END 2024-10-23 10:41 | disposition home or self-care (01) ==
LOC: HO.HOSX 10:40
PROVIDERS: Visit Provider Physician Assistant
DX: S92.351D Displaced fracture of fifth metatarsal bone, right foot, subsequent encounter for fracture with routine healing (principal); M79.671 Pain in right foot; X58.XXXD Exposure to other specified factors, subsequent encounter
CPT/HCPCS: 73630; 99212

== ENCOUNTER 2024-10-23 11:13 | Outpatient (AMB) | payer OTHER, SELFPAY ==
--- OUTSIDE RECORDS SUMMARY | 2024-10-23 11:20 | XMS_ITS | Clinical Summary ---
Author Organization [facility] Address [address] [place] [address] Care Team Providers Care Ironer Name Role Phone Andrews Miller MD Primary Care Provider [phone] Allergies No known active allergies Medications Medication [...] Advance Directives For more information, please contact: [phone] Latest Code Status on File Code Status [...] way: discussion with patient . Care Teams Ironer Relationship Specialty Start Date End Date Andrews Miller MD [address] [facility] [place] [address] PCP - General Hospitalist Medicine 04/23/19
--- OUTSIDE RECORDS SUMMARY | 2024-10-23 11:20 | XMS_ITS | Encounter Summary ---
Author Organization [facility] Address [address] [place] [address] Care Team Providers Care Kiln Door Repairer Name Role Phone Andrews Miller MD Primary Care Provider [phone] Encounter Details Date Type Department Care Team (Late st Contact Info) Description 02/09/2020 Scanned Document [facility] [address] [place] [address] Provider, MD Myrna [address] [place] [address] Social History Tobacco Use Types Packs/Day Years [...] on filedocumented in this encounter Care Teams Kiln Door Repairer Relationship Specialty Start Date End Date Andrews Miller MD [address] [place] [address] PCP - General Internal Medicine 05/11/19 documented as of this encounter
--- OUTSIDE RECORDS SUMMARY | 2024-10-23 11:20 | XMS_ITS | Clinical Summary ---
Author Organization [facility] Address [address] [place] [address] Phone Care Team Providers Care Cremator Name Role Phone Andrews Miller MD Primary Care Provider [phone] Allergies No known active allergies Medications albuterol [...] PCV) 2005 Cholesterol Screening (Lipid Panel) 02/11/2022 HIV Screening 02/11/2022 Hepatitis C Screening 02/11/2022 Social Influencers of Health Screening 02/11/2022 COVID-19 Vaccine (1 - 2023-2 5 season) 2023 Depression Screening 03/11/2024 Influenza Vaccine (#1) 2024 HIB Vaccines Aged [...] age to complete this topic Care Teams Cremator Relationship Specialty Start Date End Date Andrews Miller MD PCP - General Hospitalist Medicine 04/23/19
--- NOTE | 2024-10-23 11:43 | A.OFFVIS_ITS ---
Intake Visit Reasons: OV-RT 5th metatarsal base Fx DOI-08/31/24w/xr Intake Note: Jad is a 39 year old male who presents today with a short walking boot for his right 5th metatarsal base fx, DOI 08/31/24. Patient reports he is doing well. He has noticed some soreness in his ankle. Allergies No Known Allergies Allergy (Verified 09/22/24 09:44) HPI HPI OV-RT 5th metatarsal base Fx DOI-08/31/24w/xr: Details: Mr. Rock wu is a 39-year-old male who presents to the office today for routine follow-up status post right base of the 5th metatarsal fracture. Date of injury was 08/31/2024. This is a workman's comp injury. Patient and I had last appointment was given a short walking boot instructed he may weightbear as tolerated and to attend physical therapy. [facility] and has attended roughly 2 visits. He reports that the pain has been getting slightly better but he still has stiffness and discomfort. 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 Tenderness to palpation over the peroneal tendons. Patient is able to demonstrate dorsiflexion, plantar flexion, pronation and supination with limitations due to pain and stiffness. Sensation is intact. Pedal pulse intact. Assessment & Plan Assessment & Plan (1) Fracture of base of fifth metatarsal bone of right foot: Code(s): S92.351A - Displaced fracture of fifth metatarsal bone, right foot, initial encounter for closed fracture Category: Medical Plan Mr. Rock wu is a 39-year-old male who presents to the office today for routine follow-up status post right base of the 5th metatarsal fracture. Date of injury was 08/31/2024. This is a workman's comp injury. Patient and I had last appointment was given a short walking boot instructed he may weightbear as tolerated and to attend physical therapy. [facility] been [facility] and has attended roughly 2 visits. He reports that the pain has been getting slightly better but he still has stiffness and discomfort. While in the office today, I discussed with the patient that he should continue working with physical therapy. The goal is to wean him out of the boot over the next 2 weeks. I would like Physical therapy to continue working on range of motion and then progress to strengthening with the patient. 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 I would like him to continue working with physical therapy and follow up in 6 weeks with re-evaluation with anticipation to return to work full-time regular duty. He will follow up in 6 weeks, sooner if needed. X-rays of the right foot which were obtained while in the office today and were reviewed by me, Angie Sagastume PA-C, revealed redemonstrated base of the 5th metatarsal fracture with mild healing. Orders: Orders XR foot RT min 3V Today M79.673 - Pain in unspecified foot PT Evaluation and Treatment Today S92.351A - Displaced fracture of fifth metatarsal bone, right foot, initial encounter for closed fracture Coding Level of Care Code Global (38506) Diagnoses Fracture of base of fifth metatarsal bone of right foot S92.351A
== END 2024-10-23 11:55 | disposition home or self-care (01) ==
LOC: HO.HOS 11:14
PROVIDERS: Visit Provider Physician Assistant
DX: S92.351A Displaced fracture of fifth metatarsal bone, right foot, initial encounter for closed fracture (principal)
CPT/HCPCS: 99213

== ENCOUNTER → 2024-10-23 11:15 | Outpatient (BNV) | payer OTHER, SELFPAY | PROVIDERS: Visit Provider Family Medicine | DX: M79.671 Pain in right foot (principal); S92.351D Displaced fracture of fifth metatarsal bone, right foot, subsequent encounter for fracture with routine healing | CPT/HCPCS: 73630 ==

== ENCOUNTER 2024-12-08 08:34 | Outpatient (AMB) | payer OTHER, SELFPAY ==
--- OUTSIDE RECORDS SUMMARY | 2024-04-22 11:09 | XMS_ITS | Encounter Summary ---
Author Organization [facility] Address [address] [place] [address] Care Team Providers Care Crab Fisherman Name Role Phone Andrews Miller MD Primary Care Provider [phone] Encounter Details Date Type Department Care Team (Late st Contact Info) Description 04/22/2024 10:09 AM EST Hospital Encounter [facility] [address] [place] [phone] Henrik Bella MD [address] [place] [address] Social History Tobacco Use Types Packs/Day Years Used Date Smoking Tobacco: Never Smokeless Tobacco: Never Alcohol Use Standard Drinks/Week Comments Yes 0 (1 standard drink = 0.6 oz pur e alcohol) Sex and Gender Information Value Date Recorded Sex Assigned at Not on file Legal Sex Male 3:27 PM EDT Gender Identity Not on file Sexual Orientation Not on file documented as of this encounter Plan of Treatment Not on file documented as of this encounter Procedures Procedure Name Priority Date/Time Associated Diagnosis Comments XR CHEST 2 VIEWS STAT 04/22/2024 10:1 5 AM EST Viral URI with cough documented in this encounter Results * XR Chest 2 views (04/22/2024 10:15 AM EST) Anatomical Region Laterality Modality Chest Computed Radiogr aphy 04/22/2024 10:1 7 AM EST Impressions 04/22/2024 10:17 AM EST Normal chest x-ray. Narrative 04/22/2024 10:17 AM EST XR CHEST 2 VIEWS: 04/22/2024 10:09 AM CLINICAL HISTORY: Cough and SOB x 1week. Viral URI with cough. COMPARISON: No prior studies for comparison. TECHNIQUE: Two views of the chest performed. PA and lateral chest x-ray demonstrates a normal size heart. The mediastinal and hilar structures are unremarkable. Lung parenchyma is clear and there is no infiltrate, effusion or nodule. No pneumothorax is seen. The pulmonary vascularity is unremarkable. Procedure Note Chao Youngblood MD - 04/22/2024 XR CHEST 2 VIEWS: 04/22/2024 10:09 AM CLINICAL HISTORY: Cough and SOB x 1week. Viral URI with cough. COMPARISON: No prior studies for comparison. TECHNIQUE: Two views of the chest performed. PA and lateral chest x-ray demonstrates a normal size heart. Themediastinal and hilar structures are unremarkable. Lung parenchyma isclear and there is no infiltrate, effusion or nodule. No pneumothorax isseen. The pulmonary vascularity is unremarkable. IMPRESSION: Normal chest x-ray. RONA Blount IMG DIAGNOSTIC IMAGING ORDERABL ES Final Result documented in this encounter Visit Diagnoses Not on filedocumented in this encounter Care Teams Crab Fisherman Relationship Specialty Start Date End Date Andrews Miller MD [address] [place] [address] PCP - General Internal Medicine 05/11/19 documented as of this encounter
--- NOTE | 2024-12-08 08:45 | A.OFFVIS_ITS ---
Vital Signs 12/08/24 08:49 Height 5 ft 7 in Weight 165 lb BMI 25.8 Intake Visit Reasons: OV-RT 5th metatarsal base Fx DOI-08/31/24w/xr Intake Note: Jad is a 39 year old male who presents today for a follow up of his right 5th metatarsal base fx, DOI 08/31/24. At his last visit he was advised to continue with physical therapy to work on range of motion and then progress to strengthening. Patient reports he is still having pain and swelling when he is on his feet. He states that he has been out of the waling boot for 3 weeks now. Patient is noticing subtle improvements. Allergies No Known Allergies Allergy (Verified 12/08/24 08:47) HPI HPI OV-RT 5th metatarsal base Fx DOI-08/31/24w/xr: Details: Mr. Mckinley is a 39-year-old male who presents to the office today for routine follow-up of a right foot base of the 5th metatarsal fracture that occurred on 08/31/2024. Patient has been attending [facility] physical therapy and has been discharged at this time. He has been making good progress with returning back to normal activities. He still does have some soreness with prolonged standing or walking. He has progress to a supportive walking sneaker. No additional complaints. 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 No tenderness to palpation over the fracture site. Tenderness to palpation over the peroneal tendons. Patient is able to demonstrate dorsiflexion, plantar flexion, pronation and supination without limitation. Sensation is intact. Pedal pulse intact. Assessment & Plan Assessment & Plan (1) Fracture of base of fifth metatarsal bone of right foot: Code(s): S92.351A - Displaced fracture of fifth metatarsal bone, right foot, initial encounter for closed fracture Category: Medical Plan Mr. Mckinley is a 39-year-old male who presents to the office today for routine follow-up of a right foot base of the 5th metatarsal fracture that occurred on 08/31/2024. Patient has been attending [facility] physical therapy and has been discharged at this time. He has been making good progress with returning back to normal activities. He still does have some soreness with prolonged standing or walking. He has progress to a supportive walking sneaker. No additional complaints. While in the office today, we discussed returning back to normal activities as tolerated. I provided the patient a work note to allow him sedentary work for the next 4 weeks and then he will return full-time regular duty. He will continue a home exercise program of physical therapy and take tnxa-sen-udegull anti-inflammatories and/or pain relievers as needed. He will follow up PRN, sooner if needed. X-rays of the right foot which were obtained while in the office today and were reviewed by me, Angie Sagastume PA-C, revealed routine healing base of the 5th metatarsal fracture. Orders: Orders XR foot RT min 3V Today M79.673 - Pain in unspecified foot Coding Level of Care Code Global (96812) Diagnoses Fracture of base of fifth metatarsal bone of right foot S92.351A
[2024-12-08 08:49] VITALS: BMI 25.8
--- OUTSIDE RECORDS SUMMARY | 2024-12-08 08:54 | XMS_ITS | Encounter Summary ---
Author Organization [facility] Address [address] [place] [address] Care Team Providers Care Canary Breeder Name Role Phone Andrews Miller MD Primary Care Provider [phone] Encounter Details Date Type Department Care Team (Late st Contact Info) Description 05/11/2019 Scanned Document [facility] [address] [place] [address] Provider, MD Myrna [address] [place] [address] Social History Tobacco Use Types Packs/Day Years Used Date Smoking Tobacco: Never Assessed Sex and Gender Information Value Date Recorded Sex Assigned at Not on file Legal Sex Male 3:27 PM EDT Gender Identity Not on file Sexual Orientation Not on file documented as of this encounter Plan of Treatment Not on file documented as of this encounter Visit Diagnoses Not on filedocumented in this encounter Care Teams Canary Breeder Relationship Specialty Start Date End Date Andrews Miller MD [address] [place] [address] PCP - General Internal Medicine 05/11/19 documented as of this encounter
--- OUTSIDE RECORDS SUMMARY | 2024-12-08 08:54 | XMS_ITS | Encounter Summary ---
Author Organization [facility] Address [address] [place] [address] Care Team Providers Care Administrative Services Manager Name Role Phone Andrews Miller MD Primary Care Provider [phone] Encounter Details Date Type Department Care Team (Late st Contact Info) Description 05/11/2019 Scanned Document [facility] [address] [place] [address] Provider, MD Myrna [address] [place] [address] Social History Tobacco Use Types Packs/Day Years [...] on filedocumented in this encounter Care Teams Administrative Services Manager Relationship Specialty Start Date End Date Andrews Miller MD [address] [place] [address] PCP - General Internal Medicine 05/11/19 documented as of this encounter
--- OUTSIDE RECORDS SUMMARY | 2024-12-08 08:54 | XMS_ITS | Encounter Summary ---
Author Organization [facility] Address [address] [place] [address] Care Team Providers Care Plastics Repairer Name Role Phone Andrews Miller MD Primary Care Provider [phone] Encounter Details Date Type Department Care Team (Late st Contact Info) Description 02/09/2020 Scanned Document [facility] [address] [address] Provider, MD Myrna [address] [place] [address] Social History Tobacco Use Types Packs/Day Years [...] on filedocumented in this encounter Care Teams Plastics Repairer Relationship Specialty Start Date End Date Andrews Miller MD [address] [place] [address] PCP - General Internal Medicine 05/11/19 documented as of this encounter
--- OUTSIDE RECORDS SUMMARY | 2024-12-08 08:54 | XMS_ITS | Encounter Summary ---
Author Organization [facility] Address [address] [place] [address] Care Team Providers Care Supervisor Felling Bucking Name Role Phone Andrews Miller MD Primary Care Provider [phone] Encounter Details Date Type Department Care Team (Late st Contact Info) Description 04/26/2023 Scanned Document [facility] [address] [place] [id number] Jarret Cooper MD [address] [address] Social History Tobacco Use Types Packs/Day Years [...] on filedocumented in this encounter Care Teams Supervisor Felling Bucking Relationship Specialty Start Date End Date Andrews Miller MD [address] [place] [address] PCP - General Internal Medicine 05/11/19 documented as of this encounter
--- OUTSIDE RECORDS SUMMARY | 2024-12-08 08:54 | XMS_ITS | Encounter Summary ---
Author Organization [facility] Address [address] [place] [address] Care Team Providers Care Rivet Tapping Machine Operator Name Role Phone Andrews Miller MD Primary Care Provider [phone] Encounter Details Date Type Department Care Team (Late st Contact Info) Description 05/11/2019 Scanned Document [facility] [address] [place] [address] Provider, MD Myrna [address] [place] [address] Social History Tobacco Use Types Packs/Day Years [...] on filedocumented in this encounter Care Teams Rivet Tapping Machine Operator Relationship Specialty Start Date End Date Andrews Miller MD [address] [place] [address] PCP - General Internal Medicine 05/11/19 documented as of this encounter
--- OUTSIDE RECORDS SUMMARY | 2024-12-08 08:54 | XMS_ITS | Encounter Summary ---
Author Organization [facility] Address [address] [place] [address] Care Team Providers Care X Ray Electronics Wireman Name Role Phone Andrews Miller MD Primary Care Provider [phone] Encounter Details Date Type Department Care Team (Late st Contact Info) Description 07/01/2019 Scanned Document [facility] [address] [place] [address] Provider, MD Myrna [address] [place] [address] Social History Tobacco Use Types Packs/Day Years Used Date Smoking Tobacco: Never Smokeless Tobacco: Never Alcohol Use Standard Drinks/Week Comments Yes 0 (1 standard drink = 0.6 oz pur e alcohol) Sex and Gender Information Value Date Recorded Sex Assigned at Not on file Legal Sex Male 3:27 PM EDT Gender Identity Not on file Sexual Orientation Not on file COVID-19 Exposure Response Date Recorded In the last month, have you been in contact with someone who was confirmed or suspected to have Coronavirus / COVID-19? No / Unsure 07/01/2019 10:39 AM EDT documented as of this encounter Plan of Treatment Not on file documented as of this encounter Visit Diagnoses Not on filedocumented in this encounter Care Teams X Ray Electronics Wireman Relationship Specialty Start Date End Date Andrews Miller MD [address] [place] [address] PCP - General Internal Medicine 05/11/19 documented as of this encounter
--- OUTSIDE RECORDS SUMMARY | 2024-12-08 08:54 | XMS_ITS | Clinical Summary ---
Author Organization [facility] Address [address] [place] [address] Phone Care Team Providers Care Technology Instructor Name Role Phone Andrews Miller MD Primary Care Provider Allergies No known active allergies Medications albuterol [...] of 3 - 19+ 3-dose series) 2005 HPV Vaccines (1 - 3-dose SCD M series) 2013 Cholesterol Screening (Lipid Panel) 02/11/2022 HIV Screening 02/11/2022 Hepatitis C Screening 02/11/2022 Social Influencers of Health Screening 02/11/2022 Depression Screening 03/11/2024 COVID-19 Vaccine (1 - 2023-2 5 season) 2024 Influenza Vaccine (#1) 2024 RSV Immunization Adult Patie nts (1 - 1-dose 75+ series) 2061 HIB Vaccines Aged Out No longer eligi [...] on patient's age to complete this topic Pneumococcal Vaccine: Pediat rics (0 to 5 Years) and At-Risk Patients (6 to 49 Years) Aged Out No longer eligible b ased on patient's age to complete this topic RSV Immunization Patients Un melyssa 20 months Aged Out No longer eligible b ased on patient's age to complete this topic Varicella Vaccines Aged Out No longer eligible based on patient's age to complete this topic Care Teams Technology Instructor Relationship Specialty Start Date End Date Andrews Miller MD PCP - General Hospitalist Medicine 04/23/19
--- OUTSIDE RECORDS SUMMARY | 2024-12-08 08:54 | XMS_ITS | Encounter Summary ---
Author Organization [facility] Address [address] [place] [address] Care Team Providers Care Lamination Inspector Name Role Phone Andrews Miller MD Primary Care Provider [phone] Encounter Details Date Type Department Care Team (Late st Contact Info) Description 02/17/2020 Scanned Document [facility] [address] [place] [address] Provider, MD Myrna [address] [place] [address] Social History Tobacco Use Types Packs/Day Years [...] have Coronavirus / COVID-19? No / Unsure 02/16/2020 1:49 PM EST documented as of this encounter Plan of Treatment Not on file documented as of this encounter Visit Diagnoses Not on filedocumented in this encounter Care Teams Lamination Inspector Relationship Specialty Start Date End Date Andrews Miller MD [address] [place] [address] PCP - General Internal Medicine 05/11/19 documented as of this encounter
--- OUTSIDE RECORDS SUMMARY | 2024-12-08 08:54 | XMS_ITS | Clinical Summary ---
Author Organization [facility] Address [address] [place] [address] Care Team Providers Care Control Technician Name Role Phone Andrews Miller MD Primary Care Provider [phone] Allergies No known active allergies Medications Medication [...] Advance Directives For more information, please contact: [phone] Latest Code Status on File Code Status [...] way: discussion with patient . Care Teams Control Technician Relationship Specialty Start Date End Date Andrews Miller MD [address] [facility] [place] [address] PCP - General Hospitalist Medicine 04/23/19
--- OUTSIDE RECORDS SUMMARY | 2024-12-08 08:54 | XMS_ITS | Encounter Summary ---
Author Organization [facility] Address [address] [place] [address] Care Team Providers Care Turning Machine Operator Name Role Phone Andrwes Miller MD Primary Care Provider [phone] Encounter Details Date Type Department Care Team (Late st Contact Info) Description 04/25/2023 Scanned Document [facility] [address] [place] [address] Provider, Generic Social History Tobacco Use Types Packs/Day Years [...] on filedocumented in this encounter Care Teams Turning Machine Operator Relationship Specialty Start Date End Date Andrews Miller MD [address] [place] [address] PCP - General Internal Medicine 05/11/19 documented as of this encounter
--- OUTSIDE RECORDS SUMMARY | 2024-12-08 08:54 | XMS_ITS | Encounter Summary ---
Author Organization [facility] Address [address] [place] [address] Care Team Providers Care Ball Mill Operator Name Role Phone Andrews Miller MD Primary Care Provider [phone] Encounter Details Date Type Department Care Team (Late st Contact Info) Description 05/19/2019 Scanned Document [facility] [address] [place] [address] Provider, MD Myrna [address] [place] [address] Social History Tobacco Use Types Packs/Day Years [...] on filedocumented in this encounter Care Teams Ball Mill Operator Relationship Specialty Start Date End Date Andrews Miller MD [address] [place] [address] PCP - General Internal Medicine 05/11/19 documented as of this encounter
--- OUTSIDE RECORDS SUMMARY | 2024-12-08 08:54 | XMS_ITS | Clinical Summary ---
Author Organization [facility] Address [address] [place] [address] Care Team Providers Care Chef Broiler Or Fry Name Role Phone Andrews Miller MD Primary Care Provider [phone] Allergies No known active allergies Medications albuterol (PROVENTIL HFA; VENTOLIN HFA) 108 (90 Base) MCG/ACT inhaler Inhale 2 puffs 4 times daily (every 6 hours) as needed. 3 Active clotrimazole (LOTRIMIN) 1 % cream Apply topically. 0 Active ibuprofen (MOTRIN) 800 mg tablet Take 800 mg by mouth 3 (three) times a day. 9 Active naproxen (NAPROSYN) 500 MG tablet 0 Active sulfamethoxazole- trimethoprim (BACTRIM DS,SEPTRA DS) 800-160 MG per tablet Take 1 tablet by mouth 2 (two) times a day. 0 Active baclofen (LIORESAL) 10 MG tabletIndications :Thoracic sprain,Myalgia TAKE 1-2 AT BEDTIME FOR MUSCLE SPASM 180 tablet 0 Active predniSONE (DELTASONE) 20 MG tabletIndications :Mild persistent asthmatic bronchitis with acute exacerbation Take 2 tablets (40 mg total) by mouth daily. 10 tablet 5 Active brompheniramine-p seudoephedrine-DM (BROMFED DM) 30-2-10 MG/5ML syrupIndications: Mild persistent asthmatic bronchitis with acute exacerbation Take 10 mL by mouth 4 (four) times a day as needed for congestion or cough. 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 05/19/2019 Myalgia 05/19/2019 Social History Tobacco Use Types Packs/Day Years Used Date Smoking Tobacco: Never Smokeless Tobacco: Never Alcohol Use Standard Drinks/Week Comments Yes 0 (1 standard drink = 0.6 oz pur e alcohol) Sex and Gender Information Value Date Recorded Sex Assigned at Not on file Legal Sex Male 3:27 PM EDT Gender Identity Not on file Sexual Orientation Not on file Last Filed Vital Signs Vital Sign Reading Time Taken Comments Blood Pressure 129/78 04/22/2024 9:51 AM EST Pulse 78 04/22/2024 9:51 AM EST Temperature 36.8 C (98.3 F) 04/22/2024 9:51 AM EST Respiratory Rate 17 04/22/2024 9:51 AM EST Oxygen Saturation 97% 04/22/2024 9:51 AM EST Inhaled Oxygen Concentration - - Weight 74.8 kg (165 lb) 02/16/2020 2:11 PM EST Height 167.6 cm (5' 6 ) 02/16/2020 2:11 PM EST Body Mass Index 26.63 02/16/2020 2:11 PM EST Plan of Treatment Health Maintenance Due Date Last Done Comments Hepatitis C Virus Screening 1986 HIV Screening 09/05/1999 DTaP/Tdap/Td Vaccines (1 - Tdap) 2005 Hepatitis B Vaccines (1 of 3 - 19+ 3-dose series) 2005 Influenza Vaccine 10/09/2024 COVID-19 Vaccine (1 - 2023-2 5 season) 2024 HPV Vaccines (No Doses Required) Completed Pneumococcal Vaccine: Pediat dixon (0-5 Years) and At-Risk Patients (6 to 49 Years) Aged Out No longer eligible b ased on patient's age to complete this topic Insurance [facility] Care Teams Chef Broiler Or Fry Relationship Specialty Start Date End Date Andrews Miller MD [address] [place] [address] PCP - General Internal Medicine 05/11/19
--- OUTSIDE RECORDS SUMMARY | 2024-12-08 08:54 | XMS_ITS | Encounter Summary ---
Author Organization [facility] Address [address] [place] [address] Care Team Providers Care Ledge Man Name Role Phone Andrews Miller MD Primary Care Provider [phone] Encounter Details Date Type Department Care Team (Late st Contact Info) Description 05/21/[address] [facility] [address] [place] [place] [address] Provider, MD Myrna [address] [place] [address] Social History Tobacco Use Types Packs/Day Years [...] on filedocumented in this encounter Care Teams Ledge Man Relationship Specialty Start Date End Date Andrews Miller MD [address] [place] [address] PCP - General Internal Medicine 05/11/19 documented as of this encounter
== END 2024-12-08 09:04 | disposition home or self-care (01) ==
LOC: HO.HOS 08:34
PROVIDERS: Visit Provider Physician Assistant
DX: S92.351A Displaced fracture of fifth metatarsal bone, right foot, initial encounter for closed fracture (principal)
CPT/HCPCS: 99213

== ENCOUNTER → 2024-12-08 08:37 | Outpatient (BNV) | payer OTHER, SELFPAY | PROVIDERS: Visit Provider Radiology Diagnostic Radiology | DX: S92.355A Nondisplaced fracture of fifth metatarsal bone, left foot, initial encounter for closed fracture (principal) | CPT/HCPCS: 73630 ==

== ENCOUNTER 2024-12-08 09:04 | Outpatient (REF) | payer OTHER, SELFPAY ==
--- OUTSIDE RECORDS SUMMARY | 2024-04-22 11:09 | XMS_ITS | Encounter Summary ---
Author Organization [facility] Address [address] [place] [address] Care Team Providers Care Weather Analyst Name Role Phone Andrews Miller MD Primary Care Provider [phone] Encounter Details Date Type Department Care Team (Late st Contact Info) Description 04/22/2024 10:09 AM EST Hospital Encounter [facility] [address] [place] [phone] Henrik Bella MD [address] [place] [address] Social History Tobacco Use Types Packs/Day Years [...] on filedocumented in this encounter Care Teams Weather Analyst Relationship Specialty Start Date End Date Andrews Miller MD [address] [place] [address] PCP - General Internal Medicine 05/11/19 documented as of this encounter
--- NOTE | ~2024-12-08 | XR_ITS ---
EXAMINATION: XR FOOT 3 OR MORE VIEWS RIGHT HISTORY: M79.673 - Pain in unspecified foot COMPARISON: Comparison is made with the prior examination dated 10/23/2024. FINDINGS: Three views of the right foot are submitted. Osseous mineralization is normal. Again seen is a nondisplaced fracture of the base of the 5th metatarsal. The fracture line remains visible. The joint spaces are preserved. The soft tissues are unremarkable. XR/XR foot RT min 3V IMPRESSION: Nondisplaced fracture of the base of the 5th metatarsal without change. Electronically signed by: Bubba Cota MD 12/08/2024 08:44 AM EDT
--- OUTSIDE RECORDS SUMMARY | 2024-12-09 09:46 | XMS_ITS | Encounter Summary ---
Author Organization [facility] Address [address] [place] [address] Care Team Providers Care Supply Crib Attendant Name Role Phone Andrews Miller MD Primary Care Provider [phone] Encounter Details Date Type Department Care Team (Late st Contact Info) Description 07/01/2019 Scanned Document [facility] [address] [place] [address] Provider, MD Myran [address] [place] [address] Social History Tobacco Use Types Packs/Day Years [...] on filedocumented in this encounter Care Teams Supply Crib Attendant Relationship Specialty Start Date End Date Andrews Miller MD [address] [place] [address] PCP - General Internal Medicine 05/11/19 documented as of this encounter
--- OUTSIDE RECORDS SUMMARY | 2024-12-09 09:46 | XMS_ITS | Encounter Summary ---
Author Organization [facility] Address [address] [place] [address] Care Team Providers Care Statistics Tutor Name Role Phone Andrews Miller MD Primary Care Provider [phone] Encounter Details Date Type Department Care Team (Late st Contact Info) Description 05/11/2019 Scanned Document [facility] [address] [place] [address] Provider, MD Myrna [address] [place] [address] Social History Tobacco Use Types Packs/Day Years [...] on filedocumented in this encounter Care Teams Statistics Tutor Relationship Specialty Start Date End Date Andrews Miller MD [address] [place] [address] PCP - General Internal Medicine 05/11/19 documented as of this encounter
--- OUTSIDE RECORDS SUMMARY | 2024-12-09 09:46 | XMS_ITS | Encounter Summary ---
Author Organization [facility] Address [address] [place] [address] Care Team Providers Care Furniture Detailer Name Role Phone Andrews Miller MD Primary Care Provider [phone] Encounter Details Date Type Department Care Team (Late st Contact Info) Description 05/19/2019 Scanned Document [facility] [address] [facility] [place] [address] Provider, MD Myrna [address] [place] [address] Social History Tobacco Use Types Packs/Day Years [...] on filedocumented in this encounter Care Teams Furniture Detailer Relationship Specialty Start Date End Date Andrews Miller MD [address] [place] [address] PCP - General Internal Medicine 05/11/19 documented as of this encounter
--- OUTSIDE RECORDS SUMMARY | 2024-12-09 09:46 | XMS_ITS | Encounter Summary ---
Author Organization [facility] Address [address] [place] [address] Care Team Providers Care Molybdenum Steamer Operator Name Role Phone Andrews Miller MD Primary Care Provider [phone] Encounter Details Date Type Department Care Team (Late st Contact Info) Description 05/11/2019 Scanned Document [facility] [address] [facility] [place] [address] Provider, MD Myrna [address] [place] [address] Social History Tobacco Use Types Packs/Day Years [...] on filedocumented in this encounter Care Teams Molybdenum Steamer Operator Relationship Specialty Start Date End Date Andrews Miller MD [address] [place] [address] PCP - General Internal Medicine 05/11/19 documented as of this encounter
--- OUTSIDE RECORDS SUMMARY | 2024-12-09 09:46 | XMS_ITS | Encounter Summary ---
Author Organization [facility] Address [address] [place] [address] Care Team Providers Care Rim Turning Machine Operator Name Role Phone Andrews Miller MD Primary Care Provider [phone] Encounter Details Date Type Department Care Team (Late st Contact Info) Description 02/09/2020 Scanned Document [facility] [address] [place] [address] Provider, MD Myrna [address] [place] [address] Social History Tobacco Use Types Packs/Day Years [...] on filedocumented in this encounter Care Teams Rim Turning Machine Operator Relationship Specialty Start Date End Date Andrews Miller MD [address] [place] [address] PCP - General Internal Medicine 05/11/19 documented as of this encounter
--- OUTSIDE RECORDS SUMMARY | 2024-12-09 09:46 | XMS_ITS | Encounter Summary ---
Author Organization [facility] Address [address] [place] [address] Care Team Providers Care Lockstitch Coat Joiner Name Role Phone Andrews Miller MD Primary Care Provider [phone] Encounter Details Date Type Department Care Team (Late st Contact Info) Description 05/21/2019 Scanned Document [facility] [address] [place] [address] Provider, MD Myrna [address] [place] [address] Social History Tobacco Use Types Packs/Day Years [...] on filedocumented in this encounter Care Teams Lockstitch Coat Joiner Relationship Specialty Start Date End Date Andrews Miller MD [address] [place] [address] PCP - General Internal Medicine 05/11/19 documented as of this encounter
--- OUTSIDE RECORDS SUMMARY | 2024-12-09 09:47 | XMS_ITS | Clinical Summary ---
Author Organization [facility] Address [address] [place] [address] Care Team Providers Care System Support Specialist Name Role Phone Andrews Miller MD Primary Care Provider [phone] Allergies No known active allergies Medications Medication [...] Advance Directives For more information, please contact: [phone] Latest Code Status on File Code Status [...] way: discussion with patient . Care Teams System Support Specialist Relationship Specialty Start Date End Date Andrews Miller MD [address] [facility] [place] [place] [address] PCP - General Hospitalist Medicine 04/23/19
--- OUTSIDE RECORDS SUMMARY | 2024-12-09 09:47 | XMS_ITS | Encounter Summary ---
Author Organization [facility] Address [address] [place] [address] Care Team Providers Care Banquet Line Cook Name Role Phone Andrews Miller MD Primary Care Provider Encounter Details Date Type Department Care Team (Late st Contact Info) Description 04/25/2023 Scanned Document [facility] [address] [place] [address] Provider, Generic Social History Tobacco Use Types [...] on filedocumented in this encounter Care Teams Banquet Line Cook Relationship Specialty Start Date End Date Andrews Miller MD [address] [place] [address] PCP - General Internal Medicine 05/11/19 documented as of this encounter
--- OUTSIDE RECORDS SUMMARY | 2024-12-09 09:47 | XMS_ITS | Encounter Summary ---
Author Organization [facility] Address [address] [place] [address] Care Team Providers Care Housesmith Name Role Phone Andrews Miller MD Primary Care Provider [phone] Encounter Details Date Type Department Care Team (Late st Contact Info) Description 05/11/2019 Scanned Document [facility] [address] [facility] [address] [address] Provider, MD Myrna [address] [place] [address] Social History Tobacco Use Types Packs/Day Years [...] on filedocumented in this encounter Care Teams Housesmith Relationship Specialty Start Date End Date Andrews Miller MD [address] [place] [address] PCP - General Internal Medicine 05/11/19 documented as of this encounter
--- OUTSIDE RECORDS SUMMARY | 2024-12-09 09:47 | XMS_ITS | Clinical Summary ---
Author Organization [facility] Address [address] [place] [address] Phone Care Team Providers Care Bus And Trolley Inspecting Dispatcher Name Role Phone Andrews Miller MD Primary Care Provider [phone] Allergies No known active allergies Medications albuterol [...] age to complete this topic Care Teams Bus And Trolley Inspecting Dispatcher Relationship Specialty Start Date End Date Andrews Miller MD PCP - General Hospitalist Medicine 04/23/19
--- OUTSIDE RECORDS SUMMARY | 2024-12-09 09:47 | XMS_ITS | Encounter Summary ---
Author Organization [facility] Address [address] [place] [address] Care Team Providers Care Surveying Teacher Name Role Phone Andrews Miller MD Primary Care Provider [phone] Encounter Details Date Type Department Care Team (Late st Contact Info) Description 04/26/2023 Scanned Document [facility] [address] [place] [id number] Jarret Cooper MD [address] [address] Social History Tobacco Use Types Packs/Day Years [...] on filedocumented in this encounter Care Teams Surveying Teacher Relationship Specialty Start Date End Date Andrews Miller MD [address] [place] [id number] PCP - General Internal Medicine 05/11/19 documented as of this encounter
--- OUTSIDE RECORDS SUMMARY | 2024-12-09 09:47 | XMS_ITS | Clinical Summary ---
Author Organization [facility] Address [address] [place] [address] Care Team Providers Care Medicine And Health Service Manager Name Role Phone Andrews Miller MD Primary Care Provider [phone] Allergies No known active allergies Medications albuterol [...] Insurance [facility] Care Teams Medicine And Health Service Manager Relationship Specialty Start Date End Date Andrews Miller MD [address] [place] [address] PCP - General Internal Medicine 05/11/19
--- OUTSIDE RECORDS SUMMARY | 2024-12-09 09:47 | XMS_ITS | Encounter Summary ---
Author Organization [facility] Address [address] [place] [address] Care Team Providers Care Gang Supervisor Pipe Lines Name Role Phone Andrews Miller MD Primary Care Provider [phone] Encounter Details Date Type Department Care Team (Late st Contact Info) Description 02/17/2020 Scanned Document [facility] [address] [address] [address] [place] [address] Provider, MD Myrna [address] [place] [address] Social History Tobacco Use Types Packs/Day Years [...] on filedocumented in this encounter Care Teams Gang Supervisor Pipe Lines Relationship Specialty Start Date End Date Andrews Miller MD [address] [place] [id number] PCP - General Internal Medicine 05/11/19 documented as of this encounter
== END 2024-12-08 09:05 | disposition home or self-care (01) ==
LOC: HO.HOSX 09:04
PROVIDERS: Visit Provider Physician Assistant
DX: Z47.89 Encounter for other orthopedic aftercare (principal); S92.351D Displaced fracture of fifth metatarsal bone, right foot, subsequent encounter for fracture with routine healing; X58.XXXD Exposure to other specified factors, subsequent encounter
CPT/HCPCS: 73630; 99212